=== PATIENT | male | born 1970 | race Caucasian/White ===

== ENCOUNTER 2019-07-04 08:39 | Day surgery (SDC) | payer BC ==
[2019-07-01 12:23] LABS: Absolute Lymphocytes (CBC) 1.4 K/uL (0.7-4.9); Basophils % 1.1 % (0-1.3); Hematocrit 43.7 % (39.6-49.0); Lymphocytes % 25.4 % (15.3-44.8); MPV 9.3 fL (7.6-11.3); RBC Red Blood Cell Count 5.06 M/uL (4.33-5.43)
--- NOTE | 2019-07-01 12:31 | RAD REPORT ---
EXAM DESCRIPTION: Livan Gomez (2 Views)07/01/2019 12:25 pm CLINICAL HISTORY: Preop for cholecystectomy COMPARISON: None FINDINGS: The lungs appear clear of acute infiltrate. The heart is normal size IMPRESSION: No acute abnormalities displayed
[2019-07-01 12:36] LABS: Albumin 4.1 g/dL (3.4-5.0); Bilirubin Direct 0.2 mg/dL (0-0.2); Bilirubin Total 0.9 mg/dL (0.2-1.0); Potassium 4.2 mmol/L (3.5-5.1); Protein, Total 7.4 g/dL (6.4-8.2)
--- NOTE | 2019-07-01 17:14 | EKG ---
Test Date: 2019-07-01 Test Time: 12:02:15 Broadcast Journalist: DOMINGA MEASUREMENT RESULTS: Intervals: Rate: 55 MI: 184 QRSD: 104 QT: 404 QTc: 386 Marshall: P: 60 MI: 184 QRS: 61 T: 49 INTERPRETIVE STATEMENTS: Sinus bradycardia Otherwise normal ECG No previous ECG available for comparison Electronically Signed On 07-01-19 17:12:45 CDT by Calderon Whelan
[2019-07-04] MEDS ORDERED: Ringers Lactate 1,000 ML IV ONE (08:58)
[2019-07-04] MEDS: CIPROFLOXACIN 400mg IV 400 MG/200 ML BAG IV ONE ×2 (10:02→10:41)
[2019-07-04] MEDS ORDERED: ROCURONIUM 50 MG/5 ML VIAL IV ONE (10:04)
[2019-07-04] MEDS ORDERED: LIDOCAINE 2% MPF 5 ML VIAL ONE (10:04)
[2019-07-04] MEDS ORDERED: PROPOFOL 200 MG/20 ML VIAL IV ONE (10:04)
[2019-07-04] MEDS ORDERED: FENTANYL CITR 100 MCG/2 ML ONE (10:04)
[2019-07-04] MEDS ORDERED: MIDAZOLAM HCL 2 MG/2 ML INJ ONE (10:05)
[2019-07-04] MEDS ORDERED: ONDANSETRON 4 MG/2 ML VIAL ONE (10:06)
[2019-07-04] MEDS ORDERED: WATER FOR INJ,STERILE 10 ML ONE (10:06)
[2019-07-04] MEDS ORDERED: GLYCOPYRROLATE 0.2 MG/ML SYR ONE ×2 (11:20→11:21)
--- NOTE | 2019-07-04 11:24 | P.BOP ---
Preoperative diagnosis: acute cholecystitis, symptomatic cholelithiasis Postoperative diagnosis: same Primary procedure: Laparoscopic cholecystectomy Dry Transfer Man: Catrachita Sood (Uli) Estimated blood loss: <10cc Specimen: gb Findings: as above Anesthesia: General Complications: None Transferred to: Recovery Room Condition: Good
[2019-07-04] MEDS: MEPERIDINE HCL 25 MG/0.5 ML ONE ×2 (11:54→11:59)
--- NOTE | 2019-07-04 12:40 | OP ---
Date of Procedure: 07/04/2019 Surgeon: Bharat Vazquez MD Theater Teacher: ADDISON Marquez Preoperative Diagnoses: Acute cholecystitis, symptomatic cholelithiasis. Postoperative Diagnoses: Acute cholecystitis, symptomatic cholelithiasis. Procedure Performed: Laparoscopic cholecystectomy. Estimated Blood Loss: Less than 10 mL. Anesthesia: General plus local. Indications: This is the case of a 49-year-old patient, comes to us with above diagnosis. Multiple visits to the ER for right upper quadrant pain and medical doctors too. So, we diagnosed him with ac simab cholecystitis, symptomatic cholelithiasis, laparoscopic possible open cholecystectomy fully expla ined with benefits, alternatives, and risks including, but not limited to infection, bleeding, damage to adjacent structures, anesthesia complication, choledocholithiasis, bile leak, pancreatitis, VA, a nd even . He also understands this may not relieve any symptoms. He might need more than one s urgical intervention. He understood and signed a consent. Description Of Procedure: The patient was brought to the operating room, placed in supine position. Anesthesia was done without complication. Abdominal area was prepped and draped in sterile fashion. Marcaine 0.5% was injected for local anesthetic, followed by sharp incision of the skin in the infr aumbilical region. Incision was carried down to fascia, which was opened under direct vision. The p eritoneum was encountered, opened under direct vision. Vicryl #1 placed inside the fascia. Katia t rocar was carefully introduced. No bleeding was obtained. I placed 3 more trocars, 5 mm each one of them, 1 in the epigastric area and 2 in the right upper quadrant using same technique, which consist ed of local anesthetic, sharp incision of the skin, and introduction of the trocars under direct visi on. This allowed me to put a grasper in the fundus of the gallbladder, another grasper in the infund ibulum, retracted the gallbladder in the inferolateral fashion exposing the triangle of Calot, obtain ing critical view of safety. Cystic duct and cystic artery were clearly isolated free circumferentia lly and a connection between those and the gallbladder was clearly identified. I proceeded to ligate those by using at least 3 clips proximal, 1 clip distal, ligation in middle. Same was done with the cystic artery. No bile leak. No bleeding. The gallbladder was removed from liver using Bovie caut erizer and removed from abdominal cavity using an EndoCatch through the umbilical incision. The area was inspected once again. No bile leak. No bleeding. At that moment, I proceeded to remove the tr ocars under direct vision. Deflated the pneumoperitoneum. Closed the fascia with #1 Vicryl. Irriga asuncion subcutaneous tissue, closed that with 3-0 chromic and skin in a subcuticular fashion with 3-0 chr omic and Steri-Strips on top. Sponge counts and instrument counts were correct. The patient tolerat ed the procedure well. The patient was sent to Recovery in stable condition. CORA/SHARMIN Voice ID: [id number] Report ID: [id number]
--- NOTE | 2019-07-04 12:46 | DS ---
Diagnoses: Acute cholecystitis, symptomatic cholelithiasis. Procedure Performed: Laparoscopic cholecystectomy. Disposition: Home. Activity: As tolerated. No heavy lifting. Followup: Follow up in my office in 1 week. Call for appointment [phone]. Keep area dry for 48 ho urs, then may shower. Keep Steri-Strips intact. Medications: Cipro 500 p.o. q.12 and Tylenol No. 3 q.4 hours p.r.n. pain. CORA/SHARMIN Voice ID: [id number] Report ID: [id number]
[2019-07-04] MEDS ORDERED: CODEINE 30MG/APAP 300MG TAB ONE (13:18)
[2019-07-04 14:25] VITALS: BP 149/96; O2SAT 99
[2019-07-04 14:28] VITALS: TEMP 97.7
== END 2019-07-04 14:10 | disposition home or self-care (01) ==
LOC: OR 08:39
PROVIDERS: ATTEND Surgery
PROC: 0FT44ZZ Resection of Gallbladder, Percutaneous Endoscopic Approach (ICD-10-PCS; principal; 2019-07-04 10:45)
DX: K80.12 Calculus of gallbladder with acute and chronic cholecystitis without obstruction (principal); K21.9 Gastro-esophageal reflux disease without esophagitis; E07.9 Disorder of thyroid, unspecified; Z88.0 Allergy status to penicillin; Z83.3 Family history of diabetes mellitus; Z82.49 Family history of ischemic heart disease and other diseases of the circulatory system
CPT/HCPCS: 93005; 85025; 80048; 36415; 82150; 80076; 88304; 83690; 71046; 47562; J2704; J2250; J3010; J2175; J7120; J2405; J0744

== ENCOUNTER 2023-04-24 00:15 | Inpatient (IN) | payer OTHER ==
--- OUTSIDE RECORDS SUMMARY | 2023-04-24 00:21 | XMS REPORT | Continuity of Care Document ---
:1970 Author Organization [facility] t Address [address] [place] [address] Care Team Providers Name Role Phone Carmina MESA, Jennifer Primary Care Physician Carmina MESA, Jennifer Attending Clinician Payers Payer Name Policy Type Policy Number Effective Date Expiration Date Tasha pederson BLUE CROSS BLUE BL [id number] [facility] Problems Condition Condition Condition Status Onset Resolution Last Treating Co mments Source Name Details Category Date Date Treatment Clinician Date Anxiety Anxiety Disease Active Method[facility] 6-20 st 00:00: Hospita 00 l ED ED Disease Active Methodi (erectile (erectile 20 st dysfunctio dysfunctio 00:00: Ho spita n) n) 00 l Intermitte Intermitte Disease Active Overview : Methodi nt nt 8-[address] diarrhea diarrhea 00:00: g of this Hos narendra 00 note l might be different from the original. S/p cholecyst otomy 2019 Hepatic Hepatic Disease Active Overview: Meth jennifer steatosis steatosis 2-12 Formattin s t 00:00: g of this Hospita 00 note l might be different from the original. 11/02/2018 US : Diffuse fatty infiltrat ion PCK PCK Disease Recurre Overview: Metho di (polycysti (polycysti nce 2-[address] c kidney c kidney 00:00: g of this Hos narendra disease) disease) 00 note l might be different from the original. 11/02/2018 US ; Multiple cysts in the right kidney largest measuring 5.5 cm LFT LFT Disease Active 2017-09 Overview: Method i elevation elevation 0-19 Formattin s t 00:00: g of this Hospita 00 note l might be different from the original. 10/27/2018 Hepatitis panel negative 11/02/2018 US; Diffuse fatty infiltrat ion Cold hands Cold hands Disease Active M ethodi 2-15 st 00:00: Hospita 00 l Obesity, Obesity, Disease Active Metho di unspecifie unspecifie 2-12 st d obesity d obesity 00:00: Hosp selina severity, severity, 00 l unspecifie unspecifie d obesity d obesity type type HLD HLD Disease Recurre 2016-09 Overview: Metho di (hyperlipi (hyperlipi nce 0- Formattin st demia) demia) 00:00: g of this Hospita 00 note l might be different from the original. 09/09 ASCVD 4.5% 08/11 CACS: Agatston total coronary artery calcium (CAC) score: 0 Vitamin D Vitamin D Disease Active 2016-09 Overview: Methodi deficiency deficiency 0-[address] 00:00: g of this Hospita 00 note l might be different from the original. 06/07 V d 27 8 V d 23 9 V d 27 08/10 V D 24 09/10 V d 35 Gastroesop Gastroesop Disease Active M ethodi hageal hageal 6 st reflux reflux 00:00: Hospita disease disease 00 l without without esophagiti esophagiti s s Essential Essential Disease Recurre Me thodi hypertensi hypertensi nce 03-19 st on on 00:00: Hospita 00 l Subclinica Subclinica Disease Recurre Overvie w: Methodi l l nce 03-[address] hypothyroi hypothyroi 00:00: g of this Hospita dism dism 00 note l might be different from the original. 9 pt prefers not to take med 09/09 US ;1.Small (5 mm or less) nodules as described . Based on ACR TIRADS guideline s, no specific follow-up is indicated given size Tobacco Tobacco Disease Active Overview: Meth jennifer use use 03-[address] 00:00: g of this Hospita 00 note l might be different from the original. snuffing Allergies, Adverse Reactions, Alerts Allergy Allergy Status Severity Reaction(s) Onset Inactive Treating Comm ents Source Name Type Date Date Clinician Lisinopr Propensi Active Cough Method i il ty to [address] st adverse 00:00: Hospita reaction 00 l s to drug Amlodipi Propensi Active Swelling 2020-09 Leg Meth jennifer ne ty to 11-[address] adverse 00:00: Hospita reaction 00 l s to drug Penicill Propensi Active Other (See Childhood Methodi ins ty to Comments) 03-[address] adverse 00:00: Hospita reaction 00 l s to drug Family History Family Member Diagnosis Comments Start Date Stop Date Source Natural brother Thyroid disease [facility] Natural father Hypertension [facility] Maternal grandfather [facility] Maternal grandmother [facility] Natural mother Diabetes [facility] Natural mother Hypertension [facility] Natural mother Thyroid disease [facility] Other Heart attack [facility] spital Paternal grandfather [facility] Paternal grandmother [facility] Social History Social Habit Start Date Stop Date Quantity Comments Source Gender identity 2018-11-17 Identifies as male M ethodist 17:14:56 gender (finding) Hospital Sexual orientation 2018-11-17 Heterosexual Meth odist 17:14:56 (finding) [facility] History of tobacco Snuff User Method ist use [facility] Alcohol intake 2023-03-06 2023-03-06 Current drinker of Me thodist 00:00:00 00:00:00 alcohol (finding) Hospita History of Social 2023-03-06 2023-03-[address] function 00:00:00 00:00:00 Hospital Cigarettes smoked 2022-10-03 2022-10-[address] current [facility] - [facility]orted Cigarette 2022-10-03 2022-10-03 [facility] pack-years 00:00:00 00:00:00 Hospital Tobacco use and 2022-10-03 2022-10-03 User of smokeless [facility] exposure 00:00:00 00:00:00 tobacco Hospital Tobacco Comment 2022-10-03 2022-10-03 last smoked 1991 Met [facility]ist 00:00:00 00:00:00 Hospital Alcohol Comment 2017-05-12 2017-05-12 3 - 4 beers per day [facility] 00:00:00 00:00:00 [facility] Sex Ass[birth year] At [birth year] M [facility] 00:00:00 00:00:00 Hospital Smoking Status Start Date Stop Date Source Ex-smoker 2022-10-03 00:00:00 2022-10-03 [facility] F[facility] Start Stop Current Ordering Indication Dosage Frequency Signature Comments Components Source Medication Medication Date Date Medication? Clinician (SIG) Name Name metoprolol Yes [id number] TAKE 1 M ethodi succinate 7-[address] XL 00:00: MOUTH Hospita (TOPROL-XL) 00 TWICE A l 50 mg 24 hr DAY tablet levothyroxi Yes [id number] 25ug QD Take 1 Methodi ne 6-16 tablet (25 st (Synthroid) 00:00: mcg total) Hospita 25 mcg 00 by mouth l tablet daily. metoprolol 2022- No [id number] 50mg Q.5D Take 1 Methodi succinate -15 07-12 tablet (50 st XL 00:00: 00:00 mg total) Hospita (TOPROL-XL) 00 :00 by mouth 2 l 50 mg 24 hr (two) tablet times a day. metoprolol 2022- No [id number] TAKE ONE Methodi succinate -16 -[address] XL 00:00: 00:00 MOUTH [facility]osp[facility] (TOPROL-XL) 00 :00 TWICE A l 50 mg 24 hr DAY tablet FLUoxetine 2023- No [id number] 20mg QD Take 1 Methodi (PROzac) 20 10-03-[address] MG capsule 00:00: 05:59 (20 mg Hosp selina 00 :00 total) by l mouth daily. lisinopriL 2022- No [id number] 10mg QD Take 1 [facility] (PriniviL) 10-03-16 tablet (10 st 10 mg 00:00: 00:00 mg total) Hospit a tablet 00 :00 by mouth l daily. metoprolol 2022- No [id number] 50mg Q.5D Take 1 Methodi succinate 1-13 04-16 tablet (50 st XL 00:00: 00:00 mg total) Hospita (TOPROL-XL) 00 :00 by mouth 2 l 50 mg 24 hr (two) tablet times a day. metoprolol 2022- No [id number] TAKE ONE Methodi succinate 9-26 -[address] XL 00:00: 00:00 MOUTH [facility]osp[facility] (TOPROL-XL) 00 :00 TWICE A l 50 mg 24 hr DAY tablet sildenafiL Yes [id number] 100mg Q24H Take 1 [facility]i (Viagra) 6-[address] 100 MG 00:00: (100 mg Hospita tablet 00 total) by l mouth daily as needed for erectile dysfunctio n. Generic approved lisinopriL 2022- No [id number] 10mg QD Take 1 [facility] (PriniviL) 6-20 -13 tablet (10 st 10 mg 00:00: 00:00 mg total) Hospit a tablet 00 :00 by mouth l daily. FLUoxetine 2022- No [id number] 20mg QD Take 1 [facility] (PROzac) 20 6-20 -[address] MG capsule 00:00: 00:00 (20 mg Hosp selina 00 :00 total) by l mouth daily. metoprolol 2021- No [id number] 50mg Q.5D Take 1 Methodi succinate 6-20 09-26 tablet (50 st XL 00:00: 00:00 mg total) Hospita (TOPROL-XL) 00 :00 by mouth 2 l 50 mg 24 hr (two) tablet times a day. omeprazole 2019-09- No [id number] 40mg QD Take 1 Methodi (PriLOSEC) 2-14 -[address] 40 MG 00:00: 00:00 (40 mg Hospita capsule 00 :00 total) by l mouth daily. Immunizations Ordered Immunization Filled Immunization Date Status Commen ts Source Name Name Zoster Vaccine 2022-03-10 Completed [facility] Recombinant 00:00:00 [facility] PFIZER COVID-19 MRNA 2021-09-10 Completed Meth odist VACCINATION 00:00:00 [facility] FLUCELVAX QUAD PF 2021-08-[address] 00:00:[address] [facility] PFIZER COVID-19 MRNA 2021-08-19 Completed Meth odist VACCINATION 00:00:00 Hospital FLUCELVAX QUAD PF 2020-08-[address] 00:00:00 Hospital FLUBLOK QUAD PF 2019-08-10 Completed [facility] 00:00:00 [facility] FLUBLOK QUAD PF 2018-07-06 Completed [facility] 00:00:00 [facility] FLUZONE QUAD PF 2017-06-17 Completed [facility] 00:00:00 [facility] Tdap 2017-06-17 Completed [facility] 00:00:00 Hospital Vital Signs Vital Name Observation Time Observation Value Comments Source Systolic blood 2023-03-06 18:14:00 125 mm[Hg] [facility] pressure Diastolic blood 2023-03-06 18:14:00 88 mm[Hg] [facility] pressure Body height 2023-03-06 18:14:00 188 cm [facility] Body weight 2023-03-06 18:14:00 109.77 kg [facility] BMI 2023-03-06 18:14:00 31.07 kg/m2 [facility] Procedures Procedure Date / Time Performed Performing Clinician [facility] e LIPID PANEL 2023-03-05 14:28:00 [facility]Jennifer [facility] URINALYSIS, AUTOMATED 2023-03-05 14:28:00 [facility] WITH MICROSCOPY ALBUMIN WITH CREATININE 2023-03-05 14:28:00 [facility] AND RATIO, RANDOM URINE BASIC METABOLIC PANEL 2023-03-05 14:28:00 [facility] HEPATIC FUNCTION PANEL 2023-03-05 14:28:00 [facility] THYROID STIMULATING 2023-03-05 14:28:[address] [facility] HORMONE ESTIMATED GFR 2023-03-05 14:28:00 [facility] of Care Planned Activity Planned Date Details Comments Source Future Scheduled 2023-04-01 Screening for [facility] Test 07:48:41 malignant neoplasm of colon (procedure) [code = 284247708] Future Scheduled 2023-04-01 Screening for [facility] Test 07:48:41 malignant neoplasm of colon (procedure) [code = 717488315] Future Scheduled 2023-04-01 [facility]IS B [facility] Test 07:48:41 VACCINES (1 of 3 - 3-dose series) [code = HEPATITIS B VACCINES (1 of 3 - 3-dose series)] Future Scheduled 2023-04-01 [facility] for [facility] Test 07:48:41 malignant neoplasm of colon (procedure) [code = 010376585] Future Scheduled 2023-04-01 [facility] for [facility] Test 07:48:41 malignant neoplasm of colon (procedure) [code = 384584162] Future Scheduled 2023-04-01 [facility] for [facility] Test 07:48:41 malignant neoplasm of colon (procedure) [code = 397338365] Future Scheduled 2023-04-01 COVID-19 VACCINE (3 [facility] Test 07:48:41 - Pfizer series) [code = COVID-19 VACCINE (3 - Pfizer series)] Future Scheduled 2023-04-01 SHINGLES VACCINES [facility] Test 07:48:41 (2 of 2) [code = SHINGLES VACCINES (2 of 2)] Future Scheduled 2023-04-01 INFLUENZA VACCINE [facility] Test 07:48:41 [code = INFLUENZA VACCINE] Encounters Start End Encounter Admission Attending Care Care Encounter Source Date/Time Date/Time Type Type Clinicians Facility Department ID 2021-12-20 Outpatient [facility] [id number] [place] 15:45:27 [id number] [facility] 2021-12-18 Outpatient [facility] [id number] [place] 14:04:13 [id number] [facility] 2023-04-01 2023-04-01 [facility]ill [facility], 1.2.840.1 [id number] Methodi 00:00:00 00:00:[address] 3.430.2.7 Hospit a .3.916924 l .8 2023-03-06 2023-03-06 [facility], 1.2.840.1 [id number] Methodi 13:30:00 13:42:52 ne Jennifer [address]47.1.[address] 3.430.2.7 Hospit a .3.631765 l .8 2023-03-06 2023-03-06 [facility] [id number] [place] 00:00:00 00:00:00 BRANKA [address] 2023-03-05 2023-03-05 [facility] 1.2.840.1 [id number] Methodi 09:35:00 09:40:[address] 3.430.2.7 Hospit a .3.845679 l .8 2023-03-05 2023-03-05 [facility] [id number] [place] 00:00:00 00:00:00 BRANKA [address] 2023-03-05 2023-03-05 Orders [facility], 1.2.840.1 [id number] Methodi 00:00:00 00:00:00 Only Branka [address]1.[address] 3.430.2.7 Hospit a .3.902788 l .8 2023-03-04 2023-03-04 [facility]ill [facility], 1.2.840.1 [id number] Methodi 00:00:00 00:00:[address] 3.430.2.7 Hospit a .3.510769 l .8 2023-02-07 2023-02-07 Refill [facility], 1.2.840.1 [id number] Methodi 00:00:00 00:00:[address] 3.430.2.7 Hospit a .3.752237 l .8 2023-01-04 2023-01-04 [facility]ill [facility], 1.2.840.1 [id number] Methodi 00:00:00 00:00:[address] 3.430.2.7 Hospit a .3.958591 l .8 2022-10-03 2022-10-03 [facility], 1.2.840.1 [id number] Methodi 13:45:00 13:56:11 ne Branka [address]1485.1.[address] 3.430.2.7 Hospit a .3.635949 l .8 2022-10-03 2022-10-03 Outpatient [facility] [id number] [place] 00:00:00 00:00:[address] BRANKA [address] 2022-09-29 2022-09-29 [facility]ill [facility], 1.2.840.1 [id number] Methodi 00:00:00 00:00:[address] 3.430.2.7 Hospit a .3.043197 l .8 2022-06-16 2022-06-16 [facility]ill [facility], 1.2.840.1 [id number] Methodi 00:00:00 00:00:[address] 3.430.2.7 Hospit a .3.813602 l .8 2022-03-10 2022-03-10 Outpatient [facility] [id number] [place] 00:00:00 00:00:[address] 2021-08-27 2021-08-27 Outpatient [facility] [id number] [place] 00:00:00 00:00:00 BRANKA [address] 2021-08-27 2021-08-27 Outpatient [facility] [id number] [place] 00:00:00 00:00:00 BRANKA [address] 2021-08-12 2021-08-12 Outpatient [facility] [id number] [place] 00:00:00 00:00:00 BRANKA [address] 2021-05-21 2021-05-21 Outpatient [facility] [id number] [place] 00:00:00 00:00:[address] 2020-08-27 2020-08-27 Outpatient [facility] [id number] [place] 00:00:00 00:00:00 BRANKA [address] 2020-08-21 2020-08-21 Out[facility] [id number] [place] 00:00:00 00:00:00 BRANKA [address] 2020-08-21 2020-08-21 Outpatient [facility] [id number] [place] 00:00:00 00:00:00 BRANKA [address] 2020-04-27 2020-04-27 [facility] [id number] [place] 00:00:00 00:00:00 BRANKA [address] 2020-02-08 2020-02-08 Outpatient [facility] [id number] [place] 00:00:00 00:00:00 BRANKA [address] Results This patient has no known results.
[2023-04-24] MEDS ORDERED: MORPHINE 2 MG/ML SYR IV PRN (00:37)
[2023-04-24] MEDS ORDERED: ONDANSETRON 4 MG/2 ML VIAL IV PRN (00:37)
[2023-04-24] MEDS ORDERED: NITROGLYCERIN 0.4 MG/TAB SL PRN (00:37)
[2023-04-24 00:39] VITALS: BMI 29.9
--- NOTE | 2023-04-24 00:46 | P.HP ---
Certification for Inpatient Patient admitted to: Inpatient With expected LOS: >2 Midnights Patient will require the following post-hospital care: None Practitioner: I am a practitioner with admitting privileges, knowledge of patient current condition, hospital course, and medical plan of care. Services: Services provided to patient in accordance with Admission requirements found in Title 42 Section 412.3 of the Code of Federal Regulations Patient History Date of Service: 04/24/23 Reason for admission: NSTEMI History of Present Illness: 53-year-old male with history of hypertension, hypothyroidism presented to stand-alone emergency department for concern of viral syndrome as well as chest pain. He reports he been having subjective fevers, chills as well as chest pain for the last 24 to 48 hours. He describes an episode this evening while sitting in his chair at approximately 1900 on 04/23/2023 when he began to experience pressure-like chest pain with associated shortness of breath and diaphoresis that lasted for around 1 hour prior to him going to stand-alone emergency department. He was evaluated at stand-alone emergency department his initial high-sensitivity troponin at their facility was 7 with a high and normal of 0.4 his other labs were unremarkable chest x-ray was negative for acute findings his EKG showed nonspecific changes without STEMI criteria. Patient does admit has been having chest pain on and off for few years now, last tress test was more than 5 years ago has never had a heart catheterization. At this time he is pain-free denies any concerns or complaints at all. He will be admitted for NSTEMI. He received aspirin at stand-alone ER Allergies Penicillins Allergy (Verified 07/04/19 09:33) Rash Home Medications: Omeprazole [Prilosec] 40 mg PO DAILY 07/01/19 Ciprofloxacin HCl [Cipro 500 MG Tablet] 500 mg PO BID #10 tab 07/04/19 Codeine/APAP [Tylenol W/Codeine #3 tab] 1 tab PO Q4HP PRN #30 tab 07/04/19 - Past Medical/Surgical History -: Hypertension -: Hypothyroidism -: Cholecystectomy Psychosocial/ Personal History: Patient lives at home with his - Family History Family History: Reviewed- Non-Contributory - Social History Smoking Status: Never smoker Alcohol use: No CD- Drugs: No Caffeine use: Yes Place of Residence: Home Review of Systems 10-point ROS is otherwise unremarkable General: Sweats Respiratory: Shortness of Breath Cardiovascular: Chest Pain, Other (Diaphoresis) Physical Examination - Physical Exam General: Alert, In no apparent distress, Oriented x3 HEENT: Atraumatic, PERRLA, Mucous membr. moist/pink, EOMI, Sclerae nonicteric Neck: Supple, 2+ carotid pulse no bruit, No LAD, Without JVD or thyroid abnormality Respiratory: Clear to auscultation bilaterally, Normal air movement Cardiovascular: Regular rate/rhythm, Normal S1 S2 Gastrointestinal: Normal bowel sounds, No tenderness Musculoskeletal: No tenderness Integumentary: No rashes Neurological: Normal gait, Normal speech, Normal strength at 5/5 x4 extr, Normal tone, Normal affect Lymphatics: No axilla or inguinal lymphadenopathy Assessment and Plan - Plan Assessment: NSTEMI Hypertension Hypothyroidism Plan: NSTEMI Initial troponin at stand-alone ER was 7, normal is less than 0.4 on their scale. Patient does report episode of chest pain earlier today with associated shortness of breath and diaphoresis. N.p.o., heparin drip, aspirin, beta-concepcion, statin, as needed nitro, morphine. Last stress test greater than 5 years ago, has never had a heart catheter ization. Cardiology consult, echocardiogram, n.p.o. Hypertension Continue metoprolol succinate 50 mg p.o. twice daily. Hypothyroidism Continue levothyroxine 0.25 mcg. Thyroid panel this morning. DVT PPX: Heparin drip Code status: Full Discharge Plan: Home Plan to discharge in: 48 Hours - Advance Directives Does patient have a Living Will: No Does patient have a Durable POA for Healthcare: No - Code Status/Comfort Care Code Status Assessed: Yes (Full code) Critical Care: No Time Spent Managing Pts Care (In Minutes): 55
[2023-04-24] MEDS ORDERED: HEPARIN/D5W 25,000 UNIT/500 ML BAG IV SCH (01:00)
[2023-04-24] MEDS ORDERED: HEPARIN 5000 UNIT/ML 1 ML VIAL IV ONE (01:00)
[2023-04-24 01:24] LABS: Protime INR 1.12
[2023-04-24] MEDS: NA CHLORIDE 0.9% 1,000 ML IV SCH ×3 (01:35→17:16)
[2023-04-24] MEDS: LEVOTHYROXINE SOD 0.025 MG TAB PO SCH (05:46)
[2023-04-24] MEDS: METOPROLOL XL 50 MG TAB PO SCH ×2 (05:46→17:17)
[2023-04-24 06:39] LABS: Absolute Lymphocytes (CBC) 1.6 K/uL (0.7-4.9); Hematocrit 42.4 % (39.6-49.0); Lymphocytes % 28.8 % (15.3-44.8); MPV 8.8 fL (7.6-11.3); Platelets 138 thou/uL (152-406); RBC Red Blood Cell Count 4.82 M/uL (4.33-5.43)
[2023-04-24 06:55] LABS: Potassium 4.6 mEq/L (3.5-5.1)
[2023-04-24 06:56] LABS: Thyroid Stimulating Hormone 3.99 uIU/mL (0.358-3.740); Troponin High Sensitivity 10186.7 pg/mL (<58.9)
[2023-04-24] MEDS: ASPIRIN EC 81 MG TAB PO SCH (07:47)
[2023-04-24] MEDS ORDERED: NA CHLORIDE 0.9% 500 ML ONE (09:01)
[2023-04-24] MEDS ORDERED: LIDOCAINE 1% 20 ML MDV ONE (10:41)
[2023-04-24] MEDS ORDERED: HEPA 1000U/500MLS 2,000 UNIT/1,000 ML BAG IV ONE (10:41)
[2023-04-24] MEDS ORDERED: FENTANYL CITR 100 MCG/2 ML ONE (10:41)
[2023-04-24] MEDS ORDERED: MIDAZOLAM HCL 2 MG/2 ML INJ ONE (10:42)
[2023-04-24] MEDS ORDERED: ATROPINE SULF 1 MG/10 ML SYR IV ONE (10:42)
[2023-04-24] MEDS ORDERED: CLOPIDOGREL 75 MG TABLET ONE (10:42)
[2023-04-24] MEDS ORDERED: ASPIRIN 325 MG TAB ONE (10:42)
[2023-04-24] MEDS ORDERED: TICAGRELOR 90 MG TABLET PO ONE (10:42)
[2023-04-24] MEDS ORDERED: HEPARIN 10,000 UNIT/10 ML VIAL IV ONE (10:44)
[2023-04-24] MEDS ORDERED: VERAPAMIL HCL 10 MG/4 ML VIAL IV ONE (10:49)
[2023-04-24] MEDS ORDERED: HEPARIN 5000 UNIT/ML 1 ML VIAL ONE (10:49)
--- NOTE | 2023-04-24 11:20 | P.PN ---
Subjective Date of Service: 04/24/23 Chief Complaint: NSTEMI Subjective: Improving (Patient is doing well he denies any chest pain or shortness of breath he appears to have a non-STEMI scheduled for a cardiac cath today) Review of Systems 10-point ROS is otherwise unremarkable Physical Examination - Vital Signs Temperature: 98.3 F Blood Pressure: 115/78 Pulse: 66 Respirations: 18 Pulse Ox (%): 99 - Physical Exam General: Alert, In no apparent distress, Oriented x3 Neck: Supple, No Thyromegaly Cardiovascular: No edema, Regular rate/rhythm, Normal S1 S2 - Studies Laboratory Data (last 24 hrs) 04/24/23 04/24/23 04/24/23 10:13 06:17 06:17 WBC Hgb Hct Plt Count PT INR APTT 29.2 55.6 H Sodium 137 Potassium 4.6 BUN 11 Creatinine 1.25 Glucose 113 H Triglycerides 173 H Cholesterol 174 HDL Cholesterol 43 Cholesterol/HDL Ratio 4.05 04/24/23 04/24/23 06:17 01:02 WBC 5.40 Hgb 14.4 Hct 42.4 Plt Count 138 L PT 12.3 INR 1.12 APTT 29.3 Sodium Potassium BUN Creatinine Glucose Triglycerides Cholesterol HDL Cholesterol Cholesterol/HDL Ratio Assessment And Plan - Current Problems (Diagnosis) (1) Non-STEMI (non-ST elevated myocardial infarction) Current Visit: Yes Status: Acute Plan: Is 53 years of age admitted with non-STEMI acute onset of shortness of breath and chest pain apart from hypertension no prior history of coronary artery disease patient does not smoke she will troponin was over 12,000 kg no acute changes does show sinus bradycardia and is scheduled for a cardiac catheterization today no other complaints or signs oxygenation stable he is on a heparin drip
--- NOTE | 2023-04-24 12:09 | OP ---
Date of Procedure: 04/24/2023 Surgeon: DONALD AGEE Procedures Performed: 1.Selective coronary angiogram. 2.Left heart catheterization. Indication: Non-ST elevation myocardial infarction. Access: Right radial artery 6-Lao closed with TR band. Complications: None. Bleeding: Less than 20 mL. Anesthesia: Total sedation time was 50 minutes. Description Of Procedure: After risks, benefits, alternatives explained, the patient agreed to the p rocedure and signed informed consent. The patient was brought into the cardiac catheterization labor atory, prepped and draped in the usual sterile fashion. Then, I accessed the right radial artery usi ng pediatric micropuncture kit, placed 6-Lao Slender sheath, took a 5-Lao [place] 4.0 catheter in to the aortic root, engaged the left main, took standard views and then the RCA, took standard views. The catheter was pushed over the wire into the LV, measured the LVEDP, and pullback did not record any gradient. Then, I removed the catheter and sheath, and placed TR band with good hemostasis. Findings: 1.Left main; large and normal. 2.LAD; large and normal, normal diagonal branches. 3.Ramus intermedius that is entirely normal. It is moderate-size. 4.Left circumflex; it is a codominant, entirely normal. Normal OM. 5.RCA; large and dominant and is normal. 6.Elevated LVEDP at 70 mmHg. Conclusion: 1.Normal coronary arteries. 2.Elevated LVEDP. Plan: Obtain an echo, rule out takotsubo or stress-induced cardiomyopathy as a cause of his troponin rise. SR/MODL Voice ID: [id number] Report ID: [id number]
[2023-04-24] MEDS ORDERED: HEPARIN 5000 UNIT/ML 1 ML VIAL IV SCH (19:00)
[2023-04-24] MEDS ORDERED: HEPARIN/D5W 25,000 UNIT/500 ML BAG IV PRN (20:00)
[2023-04-24] MEDS ORDERED: ATORVASTATIN 40 MG TAB PO SCH (21:00)
[2023-04-24] MEDS ORDERED: ACETAMINOPHEN 325 MG TABLET PO PRN (23:59)
[2023-04-25] MEDS ORDERED: ACETAMINOPHEN 500 MG TAB ONE (00:12)
[2023-04-25] MEDS: NA CHLORIDE 0.9% 1,000 ML IV SCH (00:14)
[2023-04-25] MEDS ORDERED: ACETAMINOPHEN 325 MG TABLET ONE (00:17)
[2023-04-25 04:41] LABS: Absolute Lymphocytes (CBC) 1.3 K/uL (0.7-4.9); Hematocrit 39.9 % (39.6-49.0); Lymphocytes % 28.4 % (15.3-44.8); MCV 88.2 fL (80-100); Platelets 136 thou/uL (152-406); RBC Red Blood Cell Count 4.52 M/uL (4.33-5.43)
[2023-04-25 05:22] VITALS: O2SAT 99
[2023-04-25] MEDS: LEVOTHYROXINE SOD 0.025 MG TAB PO SCH (05:51)
[2023-04-25] MEDS: METOPROLOL XL 50 MG TAB PO SCH (05:51)
[2023-04-25] MEDS: ASPIRIN EC 81 MG TAB PO SCH (08:11)
[2023-04-25 09:58] VITALS: BP 140/82; TEMP 97.5
--- NOTE | 2023-04-25 10:04 | P.DS ---
Admission Date: 04/24/23 Discharge Date: 04/25/23 Disposition: ROUTINE DISCHARGE Discharge Condition: GOOD Reason for Admission: NSTEMI - Problems (1) Non-STEMI (non-ST elevated myocardial infarction) Current Visit: Yes Status: Acute Brief History of Present Illness: Patient is 53 years of age admitted with sudden onset of shortness of breath chest pain and was found to have elevated troponin Hospital Course: Patient did undergo cardiac cath there is no coronary artery disease. According to the diffuser operator his left ventricular function was adequate there is no electrocardiogram the time of discharge he was alert oriented responsive cooperative vital signs all stable chest clear denied any chest pain shortness of breath troponins were declining his chest was clear cardiovascular system heart sounds normal discussed with Dr. Cancino to be discharged home continue with his present beta-blockers Vital Signs/Physical Exam: Temp Pulse Resp BP Pulse Ox 97.5 F 64 18 140/82 99 04/25/23 08:00 04/25/23 08:00 04/25/23 08:00 04/25/23 08:00 04/25/23 08:00 Laboratory Data at Discharge: WBC 4.70 thou/uL (4.3-10.9) 04/25/23 04:15 Hgb 13.6 g/dL (13.6-17.9) 04/25/23 04:15 Hct 39.9 % (39.6-49.0) 04/25/23 04:15 Plt Count 136 thou/uL (152-406) L 04/25/23 04:15 PT 12.3 SECONDS (9.5-12.5) 04/24/23 01:02 INR 1.12 04/24/23 01:02 APTT 55.5 SECONDS (24.3-36.9) H 04/25/23 04:15 Sodium 138 mEq/L (136-145) 04/25/23 04:15 Potassium 4.0 mEq/L (3.5-5.1) D 04/25/23 04:15 BUN 14 mg/dL (7-18) 04/25/23 04:15 Creatinine 1.03 mg/dL (0.70-1.30) 04/25/23 04:15 Glucose 117 mg/dL (74-106) H 04/25/23 04:15 Triglycerides 173 mg/dL (<150) H 04/24/23 06:17 Cholesterol 174 mg/dL (<200) 04/24/23 06:17 HDL Cholesterol 43 mg/dL (40-60) 04/24/23 06:17 Cholesterol/HDL Ratio 4.05 04/24/23 06:17 Home Medications: Levothyroxine Sodium 1 tab PO DAILY 04/24/23 Metoprolol Succinate [Toprol Xl*] 1 tab PO BID 04/24/23 Followup: Bobby Sanchez MD [ACTIVE - CAN ADMIT] -
--- NOTE | 2023-04-26 18:29 | CON ---
Date of Consultation: 04/24/2023 Reason For Consultation: Chest pain and positive troponin. History Of Present Illness: This is a 53-year-old male with history of hypertension, hypothyroidism, presented to the emergency room with fever, chills and chest pain in the past 24 hours and pain is s harp. No radiation. There is chest discomfort and diaphoresis with it. He was evaluated in the [facility] emergency room and troponin was slightly elevated. He was sent for non-STEMI evaluation by bedside. He was chest pain free, feeling well. No other complaints today. Past Medical History: Hypertension, hypothyroidism. Medications: Refer to reconciliation sheet for detailed list. Allergies: NO KNOWN DRUG ALLERGIES. Family History: No premature coronary artery disease or cancer. Social History: He does not smoke or drink. Does not use any drugs. Review of Systems: All systems reviewed and they were negative except what mentioned in HPI. Physical Examination: Vital Signs: Reviewed. Head and Neck: Pupils are equal, reactive to light. Intact eye movements. No JVD. No cervical lym phadenopathy. Neck is supple. Thyroid is not enlarged. Lungs: Clear to auscultation bilaterally. No rhonchi, wheezing, or crackles. No accessory muscle u se. Heart: Regular rate and rhythm. No extra sounds. Abdomen: Soft, nontender. Bowel sounds positive. No organomegaly. No masses or hernia. No rigidi ty or rebound. Extremities: No edema, clubbing, or cyanosis. Intact pulses. Skin: No rash. Neurologic: Alert, awake, oriented x3. No acute focal deficits appreciated. Investigations: Troponin peaked at 12,827, down to 6870. BUN is 14, creatinine 1.03, and his white blood count is 4.7, hemoglobin 15.6. Assessment And Recommendations: 1.Chest pain with elevated troponin suggestive of non-ST elevation myocardial infarction. I did a c oronary angiogram and there was no significant coronary artery disease. Likely, this is a mild case of myocarditis due to an upper respiratory tract infection. Echo was done and ejection fraction is b orderline. Recommend initiating low-dose beta-concepcion and TOYIN inhibitor and follow up with me in the office in 2 weeks and we will titrate the doses up gradually and repeat echo on him in about 6 weeks . 2.Hypertension. Blood pressure controlled. Continue current management. 3.Upper respiratory tract infection, improving, likely with resultant mild case of myocarditis. Jean-Paul n as above. From Cardiology standpoint, the patient can be discharged and follow up with me next tracey joyner SR/SHARMIN Voice ID: [id number] Report ID: [id number]
--- NOTE | 2023-04-27 07:44 | ECHO ---
HEIGHT: 6 ft 5 in WEIGHT: 252 lb 0 oz DATE OF STUDY: 04/24/[address]: Wale Fan NP 2-DIMENSIONAL: YES M.MODE: YES DOPPLER: YES COLOR FLOW: YES TDS: PORTABLE: YES DEFINITY: BUBBLE STUDY: DIAGNOSIS: NON ST ELEVATION MYOCARDIAL INFARCTION CARDIAC HISTORY: CATHERIZATION: YES SURGERY: PROSTHETIC VALVE: PACEMAKER: MEASUREMENTS (cm) DIASTOLIC (NORMALS) SYSTOLIC (NORMALS) IVSd 1.1 (0.6-1.2) LA Diam 3.1 (1.9-4.0) LVEF 55-60% LVIDd 4.2 (3.5-5.7) LVIDs 3.2 (2.0-3.5) %FS 25% LVPWd 1.2 (0.6-1.2) Ao Diam 3.0 (2.0-3.7) 2 DIMENSIONAL ASSESSMENT: RIGHT ATRIUM: NORMAL LEFT ATRIUM: NORMAL RIGHT VENTRICLE: NORMAL LEFT VENTRICLE: NORMAL TRICUSPID VALVE: NORMAL MITRAL VALVE: MILD MITRAL REGURGITATION PULMONIC VALVE: NORMAL AORTIC VALVE: NORMAL PERICARDIAL EFFUSION: NONE AORTIC ROOT: NORMAL LEFT VENTRICULAR WALL MOTION: NORMAL DOPPLER/COLOR FLOW: SEE BELOW COMMENTS: 1. NORMAL LEFT VENTRICULAR EJECTION FRACTION 55-60% 2. NORMAL WALL MOTION 3. DIASTOLIC DYSFUNCTION 4. MILD MITRAL REGURGITATION TECHNOLOGIST: SEVERINO COLLINS
== END 2023-04-25 10:00 | disposition home or self-care (01) | DRG 282 ==
LOC: 4TH 00:15
PROVIDERS: ADMIT Internal Medicine Sleep Medicine; ATTEND Internal Medicine Sleep Medicine
PROC: 4A023N7 Measurement of Cardiac Sampling and Pressure, Left Heart, Percutaneous Approach (ICD-10-PCS; principal; 2023-04-24)
PROC: B2111ZZ Fluoroscopy of Multiple Coronary Arteries using Low Osmolar Contrast (ICD-10-PCS; 2023-04-24)
DX: I21.4 Non-ST elevation (NSTEMI) myocardial infarction (principal); I10 Essential (primary) hypertension; E03.9 Hypothyroidism, unspecified; J06.9 Acute upper respiratory infection, unspecified; I51.4 Myocarditis, unspecified; Z88.0 Allergy status to penicillin; Z90.49 Acquired absence of other specified parts of digestive tract; Z79.899 Other long term (current) drug therapy; Z79.890 Hormone replacement therapy
CPT/HCPCS: 36415; 76937; 80048; 80061; 84439; 84443; 84484; 85025; 85610; 85730; 93306; 93458; C1893; J0461; J1644; J2001; J2250; J2270; J3010; J7030; J7040; Q9966